=== PATIENT | male | born 1990 | race African-American/Black ===

== ENCOUNTER → 2019-09-11 | Outpatient (CLI) | payer SELFPAY ==
[2019-09-11 09:49] LABS: A TYPE INFLUENZA AG NEGATIVE (NEGATIVE); B INFLUENZA AG NEGATIVE (NEGATIVE)
== END ==
LOC: RDC 08:38
PROVIDERS: ATTEND Registered Nurse
DX: Z20.828 Contact with and (suspected) exposure to other viral communicable diseases (principal)
CPT/HCPCS: 87070; 87635; 87804; 87880